=== PATIENT | female | born 1935 | race Caucasian/White ===

== ENCOUNTER → 2016-05-20 | Outpatient (CLI) | payer MEDICARE, OTHER | LOC: GMAB 12:52 | PROVIDERS: ATTEND Family Medicine | DX: I48.91 Unspecified atrial fibrillation (principal); I10 Essential (primary) hypertension; E55.9 Vitamin D deficiency, unspecified ==

== ENCOUNTER → 2016-07-12 | Outpatient (CLI) | payer MEDICARE, OTHER | END | disposition home or self-care (01) | LOC: GMAB 17:30 | PROVIDERS: ATTEND Family Medicine | DX: R35.8 Other polyuria (principal) ==

== ENCOUNTER 2016-10-27 01:49 | Emergency (ER) | payer MEDICARE, OTHER ==
--- NOTE | 2016-10-27 02:20 | ED.PDOC ---
History of Present Illness - General Chief Complaint: Cardiovascular Problem Stated Complaint: irregular heart rate Time Seen by Provider: 10/27/16 01:52 Source: patient, RN notes reviewed, Vital Signs reviewed Exam Limitations: no limitations - History of Present Illness Initial Comments: Patient comes in with c/o atrial Fibrillation. Reports her heart has felt like it is quivering since yesterday morning. Normally her a.fib feels like a pounding sensation. Also, this time she has some nausea which is also unusual with her a. fib. She took a Toprol earlier today and a little later she "did not feel right" so she checked her BP and her heart rate was in the 30's. She has an abdominal aortic aneurysm so she is not on blood thinners, just aspirin. She is followed by a Web Site Project Manager in [facility]. Timing/Duration: 24 hours Severity: moderate Location: substernal Activities at Onset: rest Prior Chest Pain/Cardiac Workup: other - has long history of a. fib. Improving Factors: nothing Worsening Factors: nothing Nitro Today/Relief: no nitro taken today Aspirin Treatment Today: 81 mg x 1, provided at home Associated Symptoms: nausea/vomiting Allergies/Adverse Reactions: Allergies Acetaminophen [From Darvocet-N] Allergy (Verified 10/27/16 02:14) Butorphanol [From Stadol] Allergy (Verified 10/27/16 02:14) Ciprofloxacin [From Cipro] Allergy (Verified 10/27/16 02:14) Codeine Allergy (Verified 10/27/16 02:14) Iodine Allergy (Verified 10/27/16 02:14) Lidocaine Allergy (Verified 10/27/16 02:14) Meperidine [From Demerol HCl] Allergy (Verified 10/27/16 02:14) Phenobarbital Allergy (Verified 10/27/16 02:14) Procaine [From Novocain] Allergy (Verified 10/27/16 02:14) Promethazine [From Phenergan] Allergy (Verified 10/27/16 02:14) Propoxyphene [From Darvocet-N] Allergy (Verified 10/27/16 02:14) rhythmol Allergy (Uncoded 10/27/16 02:14) Home Medications: Ambulatory Orders Amlodipine Besylate [Norvasc] 2.5 mg PO 10/27/16 Aspirin [Aspirin Adult Low Dose] 81 mg PO 10/27/16 Diazepam [Valium] 5 mg PO 10/27/16 Metoprolol Succinate [Toprol XL] 50 mg PO 10/27/16 Review of Systems - Review of Systems Constitutional: States: no symptoms reported. Denies: diaphoresis, malaise Respiratory: States: no symptoms reported. Denies: cough, short of breath Cardiology: States: see HPI, palpitations. Denies: chest pain, syncope Gastrointestinal/Abdominal: States: nausea. Denies: abdominal pain, vomiting Musculoskeletal: States: no symptoms reported Skin: States: no symptoms reported Neurological: States: no symptoms reported All other Systems: No Change from Baseline Past Medical History (General) - Patient Medical History Hx Cardiac Disorders: Yes - a-fib Hx Hypertension: Yes Surgical History: appendectomy, cholecystectomy, Hysterectomy - Vaccination History Hx Influenza Vaccination: No Family Medical History - Family History Father Family History: Unknown Physical Exam - Physical Exam General Appearance: Alert, Comfortable, No apparent distress, Well Developed, Well Groomed, Well Hydrated, Well Nourished Neck: supple, normal inspection Respiratory: lungs clear, normal breath sounds, no respiratory distress, no accessory muscle use Cardiovascular/Chest: normal peripheral pulses, no gallop, no murmur, irregularly irregular Peripheral Pulses: dorsalis pedis,right: 2+, dorsalis pedis,left: 2+ Gastrointestinal/Abdominal: normal bowel sounds, non tender, soft, no organomegaly Extremity: pedal edema Neurologic: alert, normal mood/affect, oriented x 3 Skin Exam: normal color, warm/dry Comments: Vital Signs 10/27/16 10/27/16 02:02 02:14 Temperature 97.5 F L Pulse Rate [ 108 H 102 H Apical] Respiratory 16 Rate Blood Pressure 167/110 [Left Arm] O2 Sat by Pulse 95 Oximetry Progress - Progress Progress: 10/27/16 03:03 Initial labs and CXR are normal. Will give small dose of Labetolol to see if helps with her a. fib. Will start with 5mg since she reports a HR in the 30's after taking her Metoprolol earlier today. 10/27/16 03:27 HR still in 110's and still in a. fib. Will give another 5mg of Labetolol 10/27/16 03:43 Patient still with nausea, finally wants to have some medication for it. Will give Zofran 4mg IV 10/27/16 04:16 Patient reports both her stomach and heart are feeling better after Zofran. She is still in a.fib with rate in the 100's. ? if symptoms are mostly coming from her stomach as opposed to her heart. Will give her usual morning dose of Toprol XL 50mg PO and see if can get her a. fib to improve further. 10/27/16 05:04 Converted to sinus rhythm, rate 60. Patient reports she felt her heart go back into a sinus rhythm and is feeling better. - EKG/XRAY/CT EKG: Atrial, Fibrillation, nonspecific ST T wave Chg - Additional EKG/XRAY/Consults EKG #2: Sinus, nonspecific ST T wave Chg Departure - Departure Clinical Impression: Atrial fibrillation with normal ventricular rate Time of Disposition: 05:13 Disposition: Discharge to Home or Self Care Condition: Good Departure Forms: ED Discharge - Pt. Copy, Patient Portal Self Enrollment Instructions: DI for Atrial Fibrillation Diet: resume usual diet Activity: increase activity as tolerated Referrals: Sav Hernandez MD [Primary Care Provider] - 1-2 Weeks Home Medications: Ambulatory Orders Amlodipine Besylate [Norvasc] 2.5 mg PO 10/27/16 Aspirin [Aspirin Adult Low Dose] 81 mg PO 10/27/16 Diazepam [Valium] 5 mg PO 10/27/16 Metoprolol Succinate [Toprol XL] 50 mg PO 10/27/16 Additional Instructions: Follow up with your Web Site Project Manager
--- NOTE | 2016-10-27 02:44 | RAD ---
EXAM: Single view chest. INDICATION: Irregular heartbeat. COMPARISON: Chest x-ray: None. FINDINGS: Cardiac silhouette: Unremarkable. Viki: Unremarkable. Lobar consolidation: None. Pleural effusion: None. Pneumothorax: None. Other: None. Bones: Unremarkable. Other: None. IMPRESSION: 1. No acute cardiopulmonary process. Electronically signed by: Casey Mcmahon MD 10/27/2016 2:43 AM CDT Workstation: [id number]
[2016-10-27] MEDS ORDERED: LABETALOL INJ 5 MG/ML VIAL IV ONE ×2 (03:03→03:26)
[2016-10-27] MEDS ORDERED: ONDANSETRON INJ 4 MG/2 ML VIAL IV ONE (03:42)
[2016-10-27] MEDS ORDERED: METOPROLOL SUCCINATE XL 50 MG TAB PO ONE (04:15)
[2016-10-27 05:26] VITALS: BP 159/96; TEMP 97.8; O2SAT 97
== END 2016-10-27 05:26 | disposition home or self-care (01) ==
LOC: ER 01:49
DX: I48.91 Unspecified atrial fibrillation (principal); R11.0 Nausea; I71.4 Abdominal aortic aneurysm, without rupture; I10 Essential (primary) hypertension; Z88.6 Allergy status to analgesic agent; Z88.8 Allergy status to other drugs, medicaments and biological substances; Z79.82 Long term (current) use of aspirin; Z79.899 Other long term (current) drug therapy
CPT/HCPCS: 36415; 71010; 80053; 82550; 82553; 83880; 84484; 85025; 85379; 93005; J2405

== ENCOUNTER 2016-11-10 21:19 | Emergency (ER) | payer MEDICARE, OTHER ==
[2016-11-10 21:28] VITALS: TEMP 98.3; O2SAT 97
--- NOTE | 2016-11-10 21:48 | ED.PDOC ---
History of Present Illness - General Chief Complaint: Blood Pressure Problem Stated Complaint: elevated blood pressure, heart feels racy Time Seen by Provider: 11/10/16 21:21 Source: patient, RN notes reviewed, Vital Signs reviewed Exam Limitations: no limitations - History of Present Illness Initial Comments: Patient presents to ER with another episode of atrial fibrillation. She became concerned because her blood pressure machine could not get a reading. Otherwise her symptoms are her typical a.fib symptoms. This episode started @ 15:00 today. She had an episode on Tuesday but just waited it out at that time. Since last seen here 2 weeks ago her medication was changed from Metoprolol to Amiodirone. She is suppose to follow up with her PCP tomorrow and her Hr Intern on 11/24. Per patient the next step if Amiodirone does not work she will need an ablation. No chest pain or SOB. Just has been feeling weak for the past 4-5 days. Timing/Duration: constant - over past 6-7 hours Severity: moderate Improving Factors: nothing Worsening Factors: nothing Associated Symptoms: weakness Allergies/Adverse Reactions: Allergies Acetaminophen [From Darvocet-N] Allergy (Verified 11/10/16 21:35) Butorphanol [From Stadol] Allergy (Verified 11/10/16 21:35) Ciprofloxacin [From Cipro] Allergy (Verified 11/10/16 21:35) Codeine Allergy (Verified 11/10/16 21:35) Iodine Allergy (Verified 11/10/16 21:35) Lidocaine Allergy (Verified 11/10/16 21:35) Meperidine [From Demerol HCl] Allergy (Verified 11/10/16 21:35) Phenobarbital Allergy (Verified 11/10/16 21:35) Procaine [From Novocain] Allergy (Verified 11/10/16 21:35) Promethazine [From Phenergan] Allergy (Verified 11/10/16 21:35) Propoxyphene [From Darvocet-N] Allergy (Verified 11/10/16 21:35) rhythmol Allergy (Uncoded 10/27/16 02:14) Home Medications: Ambulatory Orders Amlodipine Besylate [Norvasc] 2.5 mg PO DAILY 10/27/16 Aspirin [Aspirin Adult Low Dose] 81 mg PO DAILY 10/27/16 Diazepam [Valium] 5 mg PO DAILY 10/27/16 Amiodarone HCl [Cordarone] 200 mg PO QD 11/10/16 Review of Systems - Review of Systems Constitutional: States: weakness. Denies: diaphoresis EENTM: States: no symptoms reported Respiratory: States: no symptoms reported. Denies: short of breath Cardiology: States: see HPI, palpitations. Denies: chest pain, syncope Gastrointestinal/Abdominal: States: no symptoms reported Musculoskeletal: States: no symptoms reported Skin: States: no symptoms reported Neurological: States: no symptoms reported All other Systems: No Change from Baseline Past Medical History (General) - Patient Medical History Hx Seizures: No Hx Stroke: No Hx Dementia: No Hx Asthma: No Hx of COPD: No Hx Cardiac Disorders: Yes - a-fib Hx Congestive Heart Failure: No Hx Pacemaker: No Hx Hypertension: Yes Hx Thyroid Disease: No Hx Diabetes: No Hx Gastroesophageal Reflux: No Hx Renal Disease: No Hx Cancer: No Hx Hepatitis C: No Surgical History: appendectomy, cholecystectomy, Hysterectomy - Vaccination History Hx Tetanus, Diphtheria Vaccination: No Hx Influenza Vaccination: No Hx Pneumococcal Vaccination: No - Social History Hx Tobacco Use: No Hx Chewing Tobacco Use: No Hx Alcohol Use: No Hx Substance Use: No Hx Substance Use Treatment: No Hx Depression: No Feels Threatened In Home Enviroment: No Feels Threatened In a Relationship: No Hx Physical Abuse: No Hx Emotional Abuse: No Hx Suspected Abuse: No Family Medical History - Family History Father Family History: Unknown Physical Exam - Physical Exam General Appearance: Alert, Comfortable, No apparent distress, Well Developed, Well Groomed, Well Hydrated, Well Nourished Neck: supple, normal inspection Respiratory: chest non-tender, lungs clear, normal breath sounds, no respiratory distress, no accessory muscle use Cardiovascular/Chest: no edema, no gallop, no murmur, irregularly irregular Extremity: normal inspection Neurologic: alert, normal mood/affect, oriented x 3 Skin Exam: normal color, warm/dry Comments: Vital Signs 11/10/16 11/10/16 21:19 21:23 Temperature 98.3 F Pulse Rate [ 111 H 111 H monitor] Respiratory 22 Rate Blood Pressure 156/133 [Left Arm] O2 Sat by Pulse 97 Oximetry Progress - Progress Progress: 11/10/16 21:50 Will give patient her usual PM dose of Amiodirone. She took her Norvasc ~1 hour ago. Will see if Amiodirone does not get her back into a normal rhythm within 1 hour will try Metoprolol since that worked at her last visit. She is agreeable with plan. 11/10/16 22:40 HR down in the 80's but still in a. fib with BP of 158/116. Will give Carvedilol 3.125mg PO 11/11/16 00:24 Patient is feeling better. HR still in the 80's and in a. fib. Last BP 157/90 Will d/c home and have her keep her follow up with Dr. Hernandez tomorrow. She is agreeable with plan. 11/11/16 00:25 Vital Signs - 24 hr 11/10/16 11/10/16 11/10/16 21:19 21:23 22:00 Temperature 98.3 F Pulse Rate [ 111 H 111 H 80 monitor] Respiratory 22 Rate Blood Pressure 156/133 179/89 [Left Arm] O2 Sat by Pulse 97 Oximetry 11/10/16 11/10/16 23:00 23:49 Temperature Pulse Rate [ 101 H 80 monitor] Respiratory 16 Rate Blood Pressure 165/109 139/84 [Left Arm] O2 Sat by Pulse Oximetry - EKG/XRAY/CT EKG: Atrial, Fibrillation, RVR, nonspecific ST T wave Chg, Unchanged from - 10/27 Comments: Rate 109 Departure - Departure Clinical Impression: Atrial fibrillation with RVR Hypertension Qualifiers: Hypertension type: essential hypertension Qualified Code(s): I10 - Essential ( primary) hypertension Time of Disposition: 00:26 Disposition: Discharge to Home or Self Care Condition: Good Departure Forms: ED Discharge - Pt. Copy, Patient Portal Self Enrollment Instructions: DI for High Blood Pressure, DI for Atrial Fibrillation Diet: resume usual diet Activity: increase activity as tolerated Referrals: Sav Hernandez MD [Primary Care Provider] - 1-2 Days Home Medications: Ambulatory Orders Amlodipine Besylate [Norvasc] 2.5 mg PO DAILY 10/27/16 Aspirin [Aspirin Adult Low Dose] 81 mg PO DAILY 10/27/16 Diazepam [Valium] 5 mg PO DAILY 10/27/16 Amiodarone HCl [Cordarone] 200 mg PO QD 11/10/16
[2016-11-10] MEDS ORDERED: CARVEDILOL 3.125 MG TAB ONE (22:42)
[2016-11-11 00:36] VITALS: BP 162/81
[2016-11-11] MEDS ORDERED: CARVEDILOL 3.125 MG TAB PO ONE (22:38)
== END 2016-11-11 00:35 | disposition home or self-care (01) ==
LOC: ER 21:19
DX: I48.91 Unspecified atrial fibrillation (principal); I10 Essential (primary) hypertension; Z88.8 Allergy status to other drugs, medicaments and biological substances; Z79.82 Long term (current) use of aspirin

== ENCOUNTER → 2016-11-29 | Outpatient (CLI) | payer MEDICARE, OTHER | END | disposition home or self-care (01) | LOC: GMAB 15:09 | PROVIDERS: ATTEND Family Medicine | DX: I48.91 Unspecified atrial fibrillation (principal) ==

== ENCOUNTER → 2017-11-16 | Outpatient (CLI) | payer MEDICARE, OTHER ==
--- NOTE | 2017-11-17 16:44 | US ---
US THYROID CLINICAL STATEMENT: ABN RESULTS OF THYROID FUNCTION STUDIES. COMPARISON: Abnormal appearance of the right lobe of the thyroid gland on prior CT scan 04/25/2013 with small left lobe. FINDINGS: Size right thyroid lobe: 4.3 x 1.9 x 1.5 cm Size left thyroid lobe: 3.9 x 1.0 x 1.0 cm Size isthmus: 0.35 cm Estimated total number of nodules greater than or equal to 1 cm: 2 Nodule 1: Size: 1.6 x 1.0 x 0.9 cm Location: Right Mid Composition: spongiform: 0 points Echogenicity: hypoechoic: 2 points Shape: wider than tall: 0 points Margins: smooth: 0 points Echogenic foci: none: 0 points ACR Total Points: 2; ACR TI-RADS risk category: TR2 - nonsuspicious nodule. Nodule 2: Size: 1.0 x 1.0 x 0.7 cm Location: Right Upper Composition: solid or almost completely solid: 2 points Echogenicity: hypoechoic: 2 points Shape: wider than tall: 0 points Margins: smooth: 0 points Echogenic foci: none: 0 points ACR Total Points: 4; ACR TI-RADS risk category: TR4 - moderately suspicious nodule. Nodule 3: Size: 1.7 x 1.8 x 0.7 cm Location: Isthmus Mid. Right. Minimal peripheral vascularity. Composition: solid or almost completely solid: 2 points Echogenicity: hypoechoic: 2 points Shape: wider than tall: 0 points Margins: smooth: 0 points Echogenic foci: none: 0 points ACR Total Points: 4; ACR TI-RADS risk category: TR4 - moderately suspicious nodule. Nodule 4: Size: 0.5 x 0.4 x 0.2 cm Location: Left Mid Composition: cystic or completely cystic: 0 points Echogenicity: hypoechoic: 2 points Shape: wider than tall: 0 points Margins: smooth: 0 points Echogenic foci: none: 0 points ACR Total Points: 2; ACR TI-RADS risk category: TR2 - nonsuspicious nodule. The soft tissue around the thyroid gland is unremarkable with no distinct masses or cysts. No parenchymal edema or large calcifications. Overlying skin is unremarkable. No abnormal vascularity. IMPRESSION: 1. Nodule 1: ACR TI-RADS 2017 Category 2. Recommend: No further follow-up. . Please see ACR TI-RADS 2017 recommendations below.* 2. Nodule 2: ACR TI-RADS 2017 Category 4. Recommend: Follow-up ultrasound in 1 year. 3. Nodule 3: ACR TI-RADS 2017 Category 4. Recommend: Ultrasound-guided fine needle aspiration 4. Nodule 4: ACR TI-RADS 2017 Category 2. Recommend: No further follow-up.. Soft tissue around the thyroid gland is unremarkable. *ACR TI-RADS 2017 Recommendations: TR1: No FNA or follow up TR2: No FNA or follow up TR3: FNA if >/= 2.5 cm, follow up if 1.5 - 2.4 cm in 1, 3, and 5 years TR4: FNA if >/= 1.5 cm, follow up if 1.0 - 1.4 cm in 1, 2, 3, and 5 years TR5: FNA if >/= 1.0 cm, follow up if 0.5 - 0.9 cm every year for 5 years ACR TI-RADS recommends that no more than two nodules with the highest ACR TI-RADS total point should be biopsied and no more than four nodules should be followed. Electronically signed by: Tony Clark MD 11/17/2017 4:43 PM CDT
== END ==
LOC: US 15:00
PROVIDERS: ATTEND Family Medicine
DX: R94.6 Abnormal results of thyroid function studies (principal); E04.1 Nontoxic single thyroid nodule

== ENCOUNTER 2019-02-14 15:33 | Emergency (ER) | payer MEDICARE, OTHER ==
--- NOTE | 2019-02-14 16:23 | ED.PDOC ---
History of Present Illness - General Chief Complaint: Chest Pain/NC Time Seen by Provider: 02/14/19 16:13 Source: patient, RN notes reviewed, Vital Signs reviewed, family Exam Limitations: no limitations - History of Present Illness Initial Comments: Pt is an 83 yo female with PMH of HTN and afib s/p ablation with permanent pacemaker and followed by Dr. Catalan. Prresents with 3 day h/o left chest pres sure that radiates to left arm. Pain has been constant. Not changed by exertion or movement. Denies SOB, nausea, cough or fever. States she has had heart cath in the past that was normal. Allergies/Adverse Reactions: Allergies Acetaminophen [From Darvocet-N] Allergy (Verified 11/10/16 21:35) Butorphanol [From Stadol] Allergy (Verified 11/10/16 21:35) Ciprofloxacin [From Cipro] Allergy (Verified 11/10/16 21:35) Codeine Allergy (Verified 11/10/16 21:35) Iodine Allergy (Verified 11/10/16 21:35) Lidocaine Allergy (Verified 11/10/16 21:35) Meperidine [From Demerol HCl] Allergy (Verified 11/10/16 21:35) Phenobarbital Allergy (Verified 11/10/16 21:35) Procaine [From Novocain] Allergy (Verified 11/10/16 21:35) Promethazine [From Phenergan] Allergy (Verified 11/10/16 21:35) Propoxyphene [From Darvocet-N] Allergy (Verified 11/10/16 21:35) rhythmol Allergy (Uncoded 10/27/16 02:14) Home Medications: Ambulatory Orders Amlodipine Besylate [Norvasc] 2.5 mg PO DAILY 10/27/16 Aspirin [Aspirin Adult Low Dose] 81 mg PO DAILY 10/27/16 Diazepam [Valium] 5 mg PO DAILY 10/27/16 Amiodarone HCl [Cordarone] 200 mg PO QD 11/10/16 Review of Systems - Review of Systems Constitutional: Denies: chills, fever, weakness EENTM: Denies: ear pain, nose congestion, throat pain Respiratory: Denies: cough, short of breath Cardiology: States: chest pain. Denies: edema, palpitations, syncope Gastrointestinal/Abdominal: Denies: diarrhea, nausea, vomiting Genitourinary: States: no symptoms reported Musculoskeletal: Denies: back pain Skin: States: no symptoms reported Neurological: States: no symptoms reported Endocrine: States: no symptoms reported All other Systems: Reviewed and Negative Past Medical History (General) - Patient Medical History Hx Seizures: No Hx Stroke: No Hx Dementia: No Hx Asthma: No Hx of COPD: No Hx Cardiac Disorders: Yes - a-fib Hx Congestive Heart Failure: No Hx Pacemaker: No Hx Hypertension: Yes Hx Thyroid Disease: No Hx Diabetes: No Hx Gastroesophageal Reflux: No Hx Renal Disease: No Hx Cancer: No Hx Hepatitis C: No - Vaccination History Hx Tetanus, Diphtheria Vaccination: No Hx Influenza Vaccination: No Hx Pneumococcal Vaccination: No - Social History Hx Tobacco Use: No Hx Chewing Tobacco Use: No Hx Alcohol Use: No Hx Substance Use: No Hx Substance Use Treatment: No Hx Depression: No Hx Physical Abuse: No Hx Emotional Abuse: No Hx Suspected Abuse: No Family Medical History - Family History Father Family History: Unknown Physical Exam - Physical Exam General Appearance: Alert, Comfortable, No apparent distress Ears, Nose, Throat: normal pharynx Neck: non-tender, full range of motion, supple Respiratory: chest non-tender, lungs clear, normal breath sounds, no accessory muscle use, respiratory distress Cardiovascular/Chest: regular rate, rhythm, no edema, no murmur Gastrointestinal/Abdominal: non tender, soft, no pulsatile mass Back Exam: normal inspection, no CVA tenderness, no vertebral tenderness Extremity: normal range of motion, non-tender, normal inspection, no calf tenderness Neurologic: no motor/sensory deficits, alert, normal mood/affect Progress - Progress Progress: 02/14/19 18:36 Pt presents with left sided chest pain x 3 days. initially, BP elevated and improved with NTG. Troponin negative x 2. Pt has been pain free and requesting to go home. I have recommended she f/u with Dr. Catalan, her cathead operator, in 2-3 days for continued outpatient evaluation. SRP given. - Results/Orders Results/Orders: EKG at 1537 Ventricular paced rhythm, rate 82, wide QRS, nonspecific ST abnormality EXAM DESCRIPTION: Chest,1 View CLINICAL HISTORY: 83 years Female, chest pain COMPARISON: 10/27/2016 TECHNIQUE: Single view radiograph of the chest. IMPRESSION: Normal size cardiac silhouette. Partially calcified and mildly tortuous aorta. Interval placement of cardiac device in the left chest wall with the single lead wire overlying the right heart. Lungs appear hyperexpanded. Basilar atelectasis. No lobar consolidation. No pleural effusion or pneumothorax. Thoracic spondylosis. Mild bilateral glenohumeral arthrosis. 02/14/19 16:05 Telemetry .ONCE EKG Stat Pulse Ox Stat 02/14/19 16:06 Pulse Oximetry Assessment DAILY 02/14/19 16:19 IV Care:Saline Lock per Protoc QSHIFT Telemetry .ONCE Sodium Chloride 0.9% (Flush) [Saline Flush Syringe] 10 ml IV PRN PRN EKG Stat Pulse Ox Stat Pulse Oximetry Assessment DAILY Laboratory Results - last 24 hr 02/14/19 02/14/19 02/14/19 16:00 16:00 16:00 WBC 7.0 Cancelled Cancelled RBC 4.80 Cancelled Cancelled Hgb 13.8 Cancelled Cancelled Hct 41.9 Cancelled Cancelled MCV 87.2 Cancelled Cancelled MCH 28.7 Cancelled Cancelled MCHC 33.0 Cancelled Cancelled RDW 13.6 Cancelled Cancelled Plt Count 307 Cancelled Cancelled MPV 7.8 Cancelled Cancelled Absolute Neuts (auto) 4.70 Cancelled Cancelled Absolute Lymphs (auto) 1.50 Cancelled Cancelled Absolute Monos (auto) 0.60 Cancelled Cancelled Absolute Eos (auto) 0.10 Cancelled Cancelled Absolute Basos (auto) 0.00 Cancelled Cancelled Neutrophils % 67.5 Cancelled Cancelled Lymphocytes % 21.8 Cancelled Cancelled Monocytes % 8.2 Cancelled Cancelled Eosinophils % 1.9 Cancelled Cancelled Basophils % 0.6 Cancelled Cancelled Differential Comment Cancelled Cancelled RBC Morphology Cancelled Cancelled PT 9.7 Cancelled INR 0.98 Cancelled PTT (SP) 24.6 Cancelled Sodium 139 Cancelled Potassium 3.9 Cancelled Chloride 103 Cancelled Carbon Dioxide 27 Cancelled Anion Gap 12.9 Cancelled BUN 23 H Cancelled Creatinine 0.73 Cancelled BUN/Creatinine Ratio 31.5 H Cancelled Random Glucose 99 Cancelled Serum Osmolality 281.3 Cancelled Calcium 9.5 Cancelled Magnesium 2.0 Cancelled Total Bilirubin Direct Bilirubin Indirect Bilirubin AST ALT Alkaline Phosphatase Creatine Kinase 50 Cancelled CK-MB (CK-2) 1.9 Cancelled CK-MB (CK-2) % Not Reportable Cancelled Troponin I < 0.02 Cancelled B-Natriuretic Peptide 184.0 H Cancelled Serum Total Protein Albumin Globulin Albumin/Globulin Ratio 02/14/19 02/14/19 16:00 18:04 WBC RBC Hgb Hct MCV MCH MCHC RDW Plt Count MPV Absolute Neuts (auto) Absolute Lymphs (auto) Absolute Monos (auto) Absolute Eos (auto) Absolute Basos (auto) Neutrophils % Lymphocytes % Monocytes % Eosinophils % Basophils % Differential Comment RBC Morphology PT INR PTT (SP) Sodium Cancelled Potassium Cancelled Chloride Cancelled Carbon Dioxide Cancelled Anion Gap Cancelled BUN Cancelled Creatinine Cancelled BUN/Creatinine Ratio Cancelled Random Glucose Cancelled Serum Osmolality Cancelled Calcium Cancelled Magnesium Total Bilirubin 0.6 Direct Bilirubin 0.1 Indirect Bilirubin 0.5 AST 23 ALT 19 Alkaline Phosphatase 90 Creatine Kinase CK-MB (CK-2) CK-MB (CK-2) % Troponin I < 0.02 B-Natriuretic Peptide Serum Total Protein 7.9 Albumin 4.2 Globulin Cancelled Albumin/Globulin Ratio Cancelled Departure - Departure Clinical Impression: Chest pain Qualifiers: Chest pain type: unspecified Qualified Code(s): R07.9 - Chest pain, unspecified Hypertension Qualifiers: Hypertension type: essential hypertension Qualified Code(s): I10 - Essential (primary) hypertension Time of Disposition: 18:34 Disposition: Discharge to Home or Self Care Condition: Good Departure Forms: ED Discharge - Pt. Copy, Patient Portal Self Enrollment Instructions: DI for Chest Pain Referrals: BRITTNEY LIZ MD [Primary Care Provider] - 1-2 Weeks Home Medications: Ambulatory Orders Amlodipine Besylate [Norvasc] 2.5 mg PO DAILY 10/27/16 Aspirin [Aspirin Adult Low Dose] 81 mg PO DAILY 10/27/16 Diazepam [Valium] 5 mg PO DAILY 10/27/16 Amiodarone HCl [Cordarone] 200 mg PO QD 11/10/16 Comments: Follow up with Dr. Catalan in 2-3 days for continued evaluation.
[2019-02-14] MEDS: SODIUM CHLORIDE 0.9% (FLUSH) 10 ML SYG IV PRN (16:32)
--- NOTE | 2019-02-14 16:32 | RAD ---
EXAM DESCRIPTION: Chest,1 View CLINICAL HISTORY: 83 years Female, chest pain COMPARISON: 10/27/2016 TECHNIQUE: Single view radiograph of the chest. IMPRESSION: Normal size cardiac silhouette. Partially calcified and mildly tortuous aorta. Interval placement of cardiac device in the left chest wall with the single lead wire overlying the right heart. Lungs appear hyperexpanded. Basilar atelectasis. No lobar consolidation. No pleural effusion or pneumothorax. Thoracic spondylosis. Mild bilateral glenohumeral arthrosis. Electronically signed by: Librado Saenz MD 02/14/2019 4:30 PM SOFTWARE DEVELOPER CONSULTANT
[2019-02-14] MEDS: ASPIRIN TABLET 325 MG TAB PO ONE (16:55)
[2019-02-14] MEDS: NITROGLYCERIN 0.4 MG 25 EA TAB SL ONE (16:55)
[2019-02-14] MEDS: ONDANSETRON INJ 4 MG/2 ML VIAL IV ONE (16:55)
[2019-02-14 18:59] VITALS: BP 151/92; TEMP 97; O2SAT 97
== END 2019-02-14 18:52 | disposition home or self-care (01) ==
LOC: ER 15:33
DX: R07.9 Chest pain, unspecified (principal); I10 Essential (primary) hypertension; I48.91 Unspecified atrial fibrillation; Z79.82 Long term (current) use of aspirin; Z79.899 Other long term (current) drug therapy; Z88.8 Allergy status to other drugs, medicaments and biological substances; Z88.6 Allergy status to analgesic agent; Z88.1 Allergy status to other antibiotic agents; Z88.5 Allergy status to narcotic agent; Z91.041 Radiographic dye allergy status; Z95.0 Presence of cardiac pacemaker

== ENCOUNTER 2019-10-15 03:49 | Emergency (ER) | payer MEDICARE, OTHER ==
[2019-10-15 04:04] VITALS: TEMP 97.2
--- NOTE | 2019-10-15 04:45 | RAD ---
CLINICAL HISTORY: cardiac COMPARISON: 02/14/2019. TECHNIQUE: XR CHEST 1 VIEW 10/15/2019 4:04 AM CDT FINDINGS: The heart is borderline in size. Left dual-chamber pacemaker is present. Lungs are clear without consolidation, atelectasis, mass or edema. There is no pleural effusion. There is no pneumothorax. There are no acute osseous findings. IMPRESSION: Clear lungs. Electronically signed by: Ken Gonzales MD 10/15/2019 4:44 AM CDT
[2019-10-15 05:03] VITALS: O2SAT 97
--- NOTE | 2019-10-15 05:28 | ED.PDOC ---
History of Present Illness - General Chief Complaint: Blood Pressure Problem Stated Complaint: high blood pressure Time Seen by Provider: 10/15/19 05:07 Source: patient, RN notes reviewed, Vital Signs reviewed Exam Limitations: no limitations - History of Present Illness Initial Comments: Patient is an 84-year-old white female who presents with complaints of elevated blood pressure and chest pressure. Patient has a history of hypertension and was recently switched to a new medicine. She started her new medication regimen [address] Hilliard is her regular medical doctor. Patient states that the new medicine is making her pee more often. It has improved the swelling in her feet, but her blood pressure has still remained elevated. Patient denies any chest pain, shortness of breath, nausea, vomiting, diarrhea. Timing/Duration: other - 3 days Severity: moderate Improving Factors: nothing Worsening Factors: nothing Associated Symptoms: denies symptoms Allergies/Adverse Reactions: Allergies Acetaminophen [From Darvocet-N] Allergy (Verified 11/10/16 21:35) Butorphanol [From Stadol] Allergy (Verified 11/10/16 21:35) Ciprofloxacin [From Cipro] Allergy (Verified 11/10/16 21:35) Codeine Allergy (Verified 11/10/16 21:35) Iodine Allergy (Verified 11/10/16 21:35) Lidocaine Allergy (Verified 11/10/16 21:35) Meperidine [From Demerol HCl] Allergy (Verified 11/10/16 21:35) Phenobarbital Allergy (Verified 11/10/16 21:35) Procaine [From Novocain] Allergy (Verified 11/10/16 21:35) Promethazine [From Phenergan] Allergy (Verified 11/10/16 21:35) Propoxyphene [From Darvocet-N] Allergy (Verified 11/10/16 21:35) rhythmol Allergy (Uncoded 10/27/16 02:14) Home Medications: Ambulatory Orders Aspirin [Aspirin Adult Low Dose] 81 mg PO DAILY 10/27/16 Diazepam [Valium] 5 mg PO DAILY 10/27/16 Losartan Potassium 50 mg PO DAILY 10/15/19 Review of Systems - Review of Systems Constitutional: States: no symptoms reported, see HPI. Denies: chills, fever, malaise, weakness EENTM: States: no symptoms reported. Denies: eye pain, blurred vision, double vision Respiratory: States: no symptoms reported. Denies: cough, short of breath, stridor Cardiology: States: see HPI, edema - Improved from last week, other - Mild chest pressure that has resolved while here. Denies: palpitations, syncope Gastrointestinal/Abdominal: States: no symptoms reported. Denies: abdominal pain, nausea, vomiting Genitourinary: States: see HPI, frequency - Patient with increased frequency since starting the new medicine.. Denies: dysuria Musculoskeletal: States: no symptoms reported. Denies: back pain, neck pain Skin: States: no symptoms reported. Denies: change in color, rash Neurological: States: no symptoms reported. Denies: tingling, tremors, weakness Endocrine: States: no symptoms reported Hematologic/Lymphatic: States: no symptoms reported All other Systems: No Change from Baseline Past Medical History (General) - Patient Medical History Hx Seizures: No Hx Stroke: No Hx Dementia: No Hx Asthma: No Hx of COPD: No Hx Cardiac Disorders: Yes - A Fib Hx Congestive Heart Failure: No Hx Pacemaker: Yes Hx Hypertension: Yes Hx Thyroid Disease: No Hx Diabetes: No Hx Gastroesophageal Reflux: No Hx Renal Disease: No Hx Cancer: No Hx of HIV: No Hx Hepatitis C: No Hx MRSA: No Surgical History: other - Vaccination History Hx Tetanus, Diphtheria Vaccination: Yes Hx Influenza Vaccination: No Hx Pneumococcal Vaccination: No - Social History Hx Tobacco Use: No Hx Chewing Tobacco Use: No Hx Alcohol Use: No Hx Substance Use: No Hx Substance Use Treatment: No Hx Depression: No Feels Threatened In Home Enviroment: No Feels Threatened In a Relationship: No Hx Physical Abuse: No Hx Emotional Abuse: No Hx Suspected Abuse: No - Female History Patient is a Female of Child Bearing Age (10 -59 yrs old): No Family Medical History - Family History Father Family History: Unknown Physical Exam - Physical Exam General Appearance: Alert, Anxious, Comfortable, Well Developed, Well Groomed Eye Exam: bilateral normal Ears, Nose, Throat: hearing grossly normal, normal ENT inspection, normal pharynx Neck: non-tender, full range of motion, supple Respiratory: chest non-tender, lungs clear, normal breath sounds, no respiratory distress Cardiovascular/Chest: normal peripheral pulses, regular rate, rhythm, no edema, no gallop Peripheral Pulses: radial,right: 2+, radial,left: 2+ Gastrointestinal/Abdominal: normal bowel sounds, non tender, soft, no organomegaly Back Exam: normal inspection, no CVA tenderness, no vertebral tenderness Extremity: normal range of motion, non-tender, swelling - Mild bilateral foot and ankle swelling but per patient markedly improved from previously 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 10/15/19 05:31 Patient symptoms have resolved after arrival here. Blood pressure has improved. Labs are relatively unremarkable. EKG is abnormal but at her baseline I suspect. Patient's peripheral edema has markedly improved since starting the new medicine. I suspect that her concerns regarding her blood pressure are medication related and she is in a transition. Between medications. Plan on discharge home with follow-up with her PCP within the next day or so. I have discussed the plan of care with the patient she voices understanding and agreement with the plan of care. Canelo Pearce M.D. #[id number] - Results/Orders Results/Orders: 10/15/19 04:04 EKG Assessment ONCE 10/15/19 04:15 EKG STAT Laboratory Results - last 24 hr 10/15/19 10/15/19 10/15/19 04:11 04:11 04:11 WBC 6.3 RBC 4.66 Hgb 14.0 Hct 40.8 MCV 87.5 MCH 30.1 MCHC 34.4 RDW 13.5 Plt Count 286 MPV 7.9 Absolute Neuts (auto) 2.90 Absolute Lymphs (auto) 2.40 Absolute Monos (auto) 0.60 Absolute Eos (auto) 0.30 Absolute Basos (auto) 0.00 Neutrophils % 46.7 Lymphocytes % 38.8 Monocytes % 9.2 H Eosinophils % 4.6 Basophils % 0.7 Sodium 140 Potassium 3.9 Chloride 105 Carbon Dioxide 26 Anion Gap 12.9 BUN 19 H Creatinine 0.86 BUN/Creatinine Ratio 22.1 H Random Glucose 92 Serum Osmolality 281.3 Lactic Acid 1.4 Calcium 9.3 Total Bilirubin 0.5 AST 19 ALT 13 Alkaline Phosphatase 81 Serum Total Protein 7.0 Albumin 3.9 Globulin 3.1 Albumin/Globulin Ratio 1.3 EKG performed 15 October 2019 at 0402 hrs.: Electronic ventricular pacemaker at 75 bpm, normal axis deviation, no ST or T wave elevation or depression. Abnormal EKG. No comparison EKG available at this time. CLINICAL HISTORY: cardiac COMPARISON: 02/14/2019. TECHNIQUE: XR CHEST 1 VIEW 10/15/2019 4:04 AM CDT FINDINGS: The heart is borderline in size. Left dual- chamber pacemaker is present. Lungs are clear without consolidation, atelectasis, mass or edema. There is no pleural effusion. There is no pneumothorax. There are no acute osseous findings. IMPRESSION: Clear lungs. Electronically signed by: Ken Gonzales MD 10/15/2019 4:44 AM CDT Departure - Departure Clinical Impression: Accelerated hypertension Medication reaction Qualifiers: Encounter type: initial encounter Qualified Code(s): T50.905A - Adverse effect of unspecified drugs, medicaments and biological substances, initial encounter Time of Disposition: 05:34 Disposition: Discharge to Home or Self Care Condition: Good Departure Forms: ED Discharge - Pt. Copy, Patient Portal Self Enrollment Instructions: DI for High Blood Pressure, High Blood Pressure (DC) Diet: resume usual diet Activity: increase activity as tolerated Referrals: BRITTNEY HILLIARD MD [Primary Care Provider] - 1-2 Days Home Medications: Ambulatory Orders Aspirin [Aspirin Adult Low Dose] 81 mg PO DAILY 10/27/16 Diazepam [Valium] 5 mg PO DAILY 10/27/16 Losartan Potassium 50 mg PO DAILY 10/15/19
[2019-10-15 05:39] VITALS: BP 179/104
== END 2019-10-15 05:39 | disposition home or self-care (01) ==
LOC: ER 03:49
DX: I10 Essential (primary) hypertension (principal); T50.905A Adverse effect of unspecified drugs, medicaments and biological substances, initial encounter; R07.89 Other chest pain; R60.0 Localized edema; I48.91 Unspecified atrial fibrillation; Z95.0 Presence of cardiac pacemaker; Z79.82 Long term (current) use of aspirin; Z79.899 Other long term (current) drug therapy; Z88.8 Allergy status to other drugs, medicaments and biological substances; Z88.6 Allergy status to analgesic agent; Z88.5 Allergy status to narcotic agent; Z88.1 Allergy status to other antibiotic agents; Z91.041 Radiographic dye allergy status

== ENCOUNTER → 2019-12-10 | Outpatient (CLI) | payer MEDICARE, OTHER | LOC: GMAE 14:30 | PROVIDERS: ATTEND Family Medicine | DX: E53.8 Deficiency of other specified B group vitamins (principal); E04.1 Nontoxic single thyroid nodule; E55.9 Vitamin D deficiency, unspecified; E78.5 Hyperlipidemia, unspecified; I10 Essential (primary) hypertension; I50.9 Heart failure, unspecified; Z79.899 Other long term (current) drug therapy ==

== ENCOUNTER → 2019-12-25 | Outpatient (CLI) | payer MEDICARE, OTHER ==
--- NOTE | 2019-12-26 12:10 | US ---
EXAM DESCRIPTION: Aorta: Ultrasound. CLINICAL HISTORY: abdominal aortic aneurysm COMPARISON: None. TECHNIQUE: Transcutaneous scanning: Two-dimensional and Doppler modes. FINDINGS: Abdominal aorta diameter - Proximal: 3.0 x 2.6 cm. Mid: 1.8 x 1.7 cm. Distal: 1.8 x 1.6 cm. Common Iliac diameter - Right: 9.7 mm. Left: 8.2 mm. Other: Atherosclerotic calcified plaque in the aorta. IMPRESSION: 3 cm abdominal aortic aneurysm. Recommend follow-up every 3 years. Reference: J Am Doug Radiol 2013;10:789-794. Electronically signed by: Tony Clark MD 12/26/2019 12:08 PM [facility] [[email or web address]]
== END ==
LOC: US 09:30
PROVIDERS: ATTEND Family Medicine
DX: I71.4 Abdominal aortic aneurysm, without rupture (principal)